=== PATIENT | female | born 1955 | race Hispanic/Latino ===

== ENCOUNTER 2021-03-07 13:37 | Outpatient (CLI) | payer MEDICARE | END 2021-03-07 13:38 | disposition home or self-care (01) | LOC: BICRAD 13:37 | PROVIDERS: ATTEND Family Medicine | DX: M25.532 Pain in left wrist (principal); M79.642 Pain in left hand ==

== ENCOUNTER 2022-12-19 13:28 | Outpatient (CLI) | payer MEDICARE | END 2022-12-19 13:29 | disposition home or self-care (01) | LOC: BICRAD 13:28 | PROVIDERS: ATTEND Family Medicine | DX: M79.605 Pain in left leg (principal) ==